=== PATIENT | female | born 1965 | race African-American/Black ===

== ENCOUNTER 2018-11-12 12:32 | Inpatient (IN) | payer OTHER ==
[~2018-11-12] VITALS: Ht 157.5 cm; Wt 108.9 kg
[2018-11-12 13:37] LABS: BASOPHILS % 1.4 % (0.0-2.0); EOSINOPHILS % 0.4 % (0.0-5.0); HEMATOCRIT. 35.1 % (36.0-48.0); HEMOGLOBIN. 11.4 g/dL (12.0-16.0); LYMPHOCYTES % 34.5 % (20.0-50.0); MEAN CORPUSCULAR HEMOGLOBIN 26.6 pg (28.0-32.0); MEAN CORPUSCULAR VOLUME 81.7 fL (81.0-99.0); MEAN PLATELET VOLUME 8.1 fl (7.4-10.4); MONOCYTES % 6.8 % (2.0-8.0); NEUTROPHILS % 56.9 % (40.0-76.0); PLATELET 292 x1000/uL (130-400); RED BLOOD CELL COUNT 4.29 mill/uL (4.2-5.4); RED CELL DISTRIBUTION WIDTH 15.4 % (11.6-14.6)
[2018-11-12 13:42] LABS: CHLORIDE 99 mEq/L (98-107)
[2018-11-12 13:43] LABS: INR 1.1
[2018-11-12] MEDS ORDERED: ENOXAPARIN 100MG/ML SYR SUBCUT ONE (14:45)
[2018-11-12 15:49] LABS: CLARITY URINE TURBID (CLEAR); COLOR URINE RED (YELLOW); KETONES URINE TRACE (NEGATIVE); LEUKOCYTE ESTERASE URINE 3+ (NEGATIVE); NITRITE URINE NEGATIVE (NEGATIVE); OCCULT BLOOD URINE 3+ (NEGATIVE); PH URINE 8.5 (4.5-8.0); PROTEIN URINE 3+ (NEGATIVE); SPECIFIC GRAVITY URINE 1.021 (1.005-1.030)
[2018-11-12] MEDS ORDERED: LORAZEPAM 2MG/ML CPJ IV PRN (16:00)
[2018-11-12] MEDS ORDERED: DIPHENHYDRAMINE 50MG/ML VIAL IV PRN (16:00)
[2018-11-12] MEDS ORDERED: DOCUSATE SODIUM 100MG CAPSULE PO PRN (16:00)
[2018-11-12] MEDS ORDERED: CLONIDINE 0.1MG TABLET PO PRN (16:00)
[2018-11-12] MEDS ORDERED: ONDANSETRON HCL 4MG/2ML INJ IV PRN (16:00)
[2018-11-12] MEDS ORDERED: MAGNESIUM/ALUMINUM HYDROXIDE/SIMETHICONE 30ML UDC PO PRN (16:00)
[2018-11-12] MEDS ORDERED: DEXTROSE 50% WATER 50ML SYRINGE IV PRN ×2 (16:00→17:00)
[2018-11-12] MEDS ORDERED: GUAIFENESIN 200MG/10ML SUGAR FREE UDC PO PRN (16:00)
[2018-11-12] MEDS ORDERED: ACETAMINOPHEN 325MG TABLET PO PRN (16:00)
[2018-11-12] MEDS ORDERED: HYDROCODONE/ACETAMINOPHEN 5/325MG TABLET PO PRN (16:00)
[2018-11-12 17:00] VITALS: BP 99/64
[2018-11-12] MEDS ORDERED: LEVOFLOXACIN 500MG TABLET PO NR (17:00)
[2018-11-12] MEDS: INSULIN LISPRO 100 UNITS/ML SUBCUT SCH ×3 (17:40→21:04)
[2018-11-12] MEDS: BLOOD SUGAR DIAGNOSTIC STRIP TEST SCH ×2 (18:00→20:54)
[2018-11-12 20:00] VITALS: BP 115/55
[2018-11-12] MEDS ORDERED: NA PHOS,M-B/NA PHOS,DI-BA ENEMA 118ML PR PRN (21:00)
[2018-11-12] MEDS ORDERED: ENOXAPARIN 30MG/0.3ML SYR SUBCUT SCH (21:00)
[2018-11-12] MEDS ORDERED: FE300LUD MT (21:43)
[2018-11-12] MEDS ORDERED: ASPI-986 MT (21:43)
[2018-11-12] MEDS ORDERED: FOLI-43 MT (21:43)
[2018-11-12] MEDS ORDERED: HYDR-4134 MT (21:46)
[2018-11-12] MEDS ORDERED: DICY20TA11 MT (21:46)
[2018-11-12] MEDS ORDERED: ATOR40TA70 MT (21:46)
[2018-11-12] MEDS ORDERED: DOCU-150 MT (21:46)
[2018-11-13] VITALS: BP 121/63
[2018-11-13 04:00] VITALS: BP 118/67
[2018-11-13 06:02] LABS: BASOPHILS % 0.4 % (0.0-2.0); EOSINOPHILS % 0.5 % (0.0-5.0); HEMATOCRIT. 32.3 % (36.0-48.0); HEMOGLOBIN. 10.6 g/dL (12.0-16.0); LYMPHOCYTES % 40.3 % (20.0-50.0); MEAN CORPUSCULAR HEMOGLOBIN 26.5 pg (28.0-32.0); MEAN CORPUSCULAR VOLUME 80.9 fL (81.0-99.0); MEAN PLATELET VOLUME 8.8 fl (7.4-10.4); MONOCYTES % 7.9 % (2.0-8.0); NEUTROPHILS % 50.9 % (40.0-76.0); PLATELET 294 x1000/uL (130-400); RED BLOOD CELL COUNT 3.99 mill/uL (4.2-5.4)
[2018-11-13 06:03] LABS: CHLORIDE 100 mEq/L (98-107)
[2018-11-13] MEDS: INSULIN LISPRO 100 UNITS/ML SUBCUT SCH ×2 (06:26→13:37)
[2018-11-13] MEDS: BLOOD SUGAR DIAGNOSTIC STRIP TEST SCH ×2 (06:29→12:10)
[2018-11-13 08:00] VITALS: BP_SYST 98; BP_DIAS 55; BP_DIAS 68
[2018-11-13] MEDS ORDERED: ENOXAPARIN 100MG/ML SYR SUBCUT SCH (08:00)
[2018-11-13] MEDS ORDERED: POTASSIUM CHLORIDE 20MEQ TABLET SR PO SCH (08:00)
[2018-11-13] MEDS ORDERED: FOLIC ACID/VITAMIN B COMP W-C TABLET PO SCH (09:00)
[2018-11-13] MEDS ORDERED: FERROUS SULFATE 300MG/5ML UDC PO SCH (09:00)
[2018-11-13] MEDS ORDERED: ENOXAPARIN 30MG/0.3ML SYR SUBCUT SCH (09:00)
[2018-11-13] MEDS ORDERED: LEVOFLOXACIN 500MG TABLET PO SCH (11:00)
[2018-11-13 12:00] VITALS: BP 91/57
[2018-11-13 14:03] VITALS: BP 91/58
[2018-11-13] MEDS ORDERED: METFORMIN HCL 500MG TABLET PO SCH (17:40)
[2018-11-13] MEDS ORDERED: ATORVASTATIN CALCIUM 40MG TABLET PO SCH (21:00)
== END 2018-11-13 14:52 | disposition short-term general hospital (02) | DRG 197 ==
LOC: ER 12:32 → 8WST 15:10 → ENRESERV 15:20
PROVIDERS: ADMIT Internal Medicine Geriatric Medicine; ATTEND Internal Medicine Geriatric Medicine
DX: I82.412 Acute embolism and thrombosis of left femoral vein (principal); E11.49 Type 2 diabetes mellitus with other diabetic neurological complication; E44.0 Moderate protein-calorie malnutrition; I82.432 Acute embolism and thrombosis of left popliteal vein; R13.10 Dysphagia, unspecified; E87.1 Hypo-osmolality and hyponatremia; I69.354 Hemiplegia and hemiparesis following cerebral infarction affecting left non-dominant side; E66.9 Obesity, unspecified; D63.8 Anemia in other chronic diseases classified elsewhere; N39.0 Urinary tract infection, site not specified; F17.210 Nicotine dependence, cigarettes, uncomplicated; E87.6 Hypokalemia; Z98.2 Presence of cerebrospinal fluid drainage device; Z68.41 Body mass index [BMI] 40.0-44.9, adult; Z88.6 Allergy status to analgesic agent; I69.391 Dysphagia following cerebral infarction
CPT/HCPCS: 36415; 78580; 82962; 83036; 85379; 87077; 87186; 93005; 93970; 96374; 99285; J1650; J1815